=== PATIENT | female | born 1945 | race African-American/Black ===

== ENCOUNTER 2017-09-05 08:54 | Outpatient (CLI) | payer MEDICARE | END 2017-09-05 08:55 | disposition home or self-care (01) | LOC: BICCT 08:54 | PROVIDERS: ATTEND Orthopaedic Surgery Sports Medicine | DX: R91.1 Solitary pulmonary nodule (principal) | CPT/HCPCS: 71250 ==

== ENCOUNTER 2020-08-23 09:14 | Outpatient (CLI) | payer MEDICARE | END 2020-08-23 09:15 | disposition home or self-care (01) | LOC: DTY/OP 09:14 | PROVIDERS: ATTEND Family Medicine | DX: E11.9 Type 2 diabetes mellitus without complications (principal) | CPT/HCPCS: 97802 ==